=== PATIENT | male | born 1975 | race Caucasian/White ===

== ENCOUNTER 2017-04-05 08:55 | Outpatient (CLI) | payer OTHER ==
[2017-04-05 09:45] LABS: eGFR (African) > 60; eGFR (Non-African) > 60
== END 2017-04-05 08:56 ==
LOC: LAB 08:55
PROVIDERS: ATTEND Family Medicine
DX: Z00.00 Encounter for general adult medical examination without abnormal findings (principal)
CPT/HCPCS: 36415; 80053; 80061

== ENCOUNTER 2018-04-18 09:00 | Outpatient (CLI) | payer OTHER ==
[2018-04-18 10:41] LABS: eGFR (African) > 60; eGFR (Non-African) > 60
== END 2018-04-18 11:25 ==
LOC: LAB 09:00
PROVIDERS: ATTEND Family Medicine
DX: Z00.00 Encounter for general adult medical examination without abnormal findings (principal)
CPT/HCPCS: 36415; 80053; 80061